=== PATIENT | male | born 1955 | race Caucasian/White ===

== ENCOUNTER 2016-07-17 09:34 | Emergency (ER) | payer OTHER ==
[2016-07-17 09:43] VITALS: BP 143/73; PULSE 82; TEMP 97.7; BMI 25.7
--- NOTE | 2016-07-17 10:06 | PDOC ---
History of Present Illness - General Chief Complaint: Injury Stated Complaint: LT HAND PAIN, SWELLING Time Seen by Provider: 07/17/16 09:46 History Source: Patient Exam Limitations: No Limitations - History of Present Illness Initial Comments: 07/17/16 09:58 On a chair that fell with him landing on an outstretched left hand. Patient states hyperextended his left fifth digit and has had pain to the PIP. Has used ice and some Motrin but has continued pain and swelling Occurred: reports: other (5 days) Severity: reports: moderate Pain Location: reports: upper extremity (left 5th digit ) Past History - Travel Traveled outside of the country in the last 30 days: No Close contact w/someone who was outside of country & ill: No - Past Medical History Allergies/Adverse Reactions: Allergies Allergy/AdvReac Type Severity Reaction Status Date / Time aspirin Allergy Verified 07/17/16 09:43 Penicillins Allergy Verified 07/17/16 09:43 Home Medications: Ambulatory Orders NK [No Known Home Medication] 07/17/16 Other medical history: PATIENT DENIES MEDICAL HISTORY - Psycho/Social/Smoking Cessation Hx Anxiety: No Suicidal Ideation: No Smoking History: Never smoked Hx Alcohol Use: Yes (E=GLASS OF WINE WITH DINNER) Drug/Substance Use Hx: No Substance Use Type: Alcohol Review of Systems - Review of Systems Able to Perform ROS?: Yes Is the patient limited Nigerian proficient: Yes Constitutional: Yes: Symptoms Reported, See HPI, Malaise HEENTM: No: Symptoms Reported Respiratory: No: Symptoms reported Musculoskeletal: Yes: Symptoms Reported, Joint Pain, Joint Swelling Integumentary: Yes: Symptoms Reported, See HPI, Bruising Neurological: Yes: See HPI. No: Symptoms reported All Other Systems: Reviewed and Negative *Physical Exam - Vital Signs Last Vital Signs Temp Pulse Resp BP Pulse Ox 97.7 F 82 18 143/73 98 07/17/16 09:40 07/17/16 09:40 07/17/16 09:40 07/17/16 09:40 07/17/16 09:40 - Physical Exam General Appearance: Yes: Nourished, Appropriately Dressed, Apparent Distress, Mild Distress HEENT: positive: MANUEL, Normal ENT Inspection, TMs Normal, Pharynx Normal Neck: positive: Supple. negative: Lymphadenopathy (R), Lymphadenopathy (L) Respiratory/Chest: positive: Lungs Clear, Normal Breath Sounds Extremity: positive: Normal Capillary Refill, Tender (flexion and extension is difficult secondary to swelling and pain to at PIP of left finger. Has reproduced tenderness at that joint. Neurovascular intact distal to injury). 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 Treated with splint, and will follow-up with Dr. Berry as needed *DC/Admit/Observation/Transfer Diagnosis at time of Disposition: Avulsion fracture of proximal phalanx of finger with routine healing - Discharge Dispostion Disposition: HOME Condition at time of disposition: Stable Admit: No - Referrals Referrals: Henrique Lara MD [Primary Care Provider] - - Patient Instructions Printed Discharge Instructions: Finger Sprain Additional Instructions: rest , Elevate, Ice on and off to finger USe splint until pain resolves- 2-3 weeks Ibuprofen 2-200mg every 6 hours for pain See Jamal for worsen pain or problems - Post Discharge Activity Work/School Note: Back to Work
== END 2016-07-17 10:31 | disposition home or self-care (01) ==
LOC: JERFT 09:34
PROC: 2W3KX1Z Immobilization of Left Finger using Splint (ICD-10-PCS; principal; 2016-07-17)
DX: S62.647A Nondisplaced fracture of proximal phalanx of left little finger, initial encounter for closed fracture (principal); W18.39XA Other fall on same level, initial encounter; Y93.9 Activity, unspecified; Y92.9 Unspecified place or not applicable
CPT/HCPCS: 73130-TC-LT; 99281-25

== ENCOUNTER 2018-03-21 11:33 | Emergency (ER) | payer OTHER ==
[2018-03-21 11:42] VITALS: BP 170/83; PULSE 90; TEMP 98.5; BMI 24.4
--- NOTE | 2018-03-21 12:06 | PDOC ---
History of Present Illness - General Chief Complaint: Allergic Reaction Stated Complaint: RT FACE RED AND SWOLLEN Time Seen by Provider: 03/21/18 11:35 History Source: Patient Exam Limitations: No Limitations - History of Present Illness Initial Comments: 03/21/18 12:00 Patient is a 63M with no significant medical history here today complaining of 1 day of facial swelling. Patient states that he was seen at the dentist on Saturday and told he might have a tooth infection at that time. Patient states that he was given amoxicillin, and when he was sent to the dentist today he was told he may have had an allergic reaction to the amoxicillin. Patient states that his right cheek is swollen, warm and tender. Denies fevers, chills, nausea , vomiting. Denies chest pain, shortness of breath. Denies rash spreading to rest of his body. Patient states that he was told as a child that he has an allergic reaction to penicillin as a child, but has never had a reaction. No pain with eye movement. No changes to vision. Past History - Past Medical History Allergies/Adverse Reactions: Allergies Allergy/AdvReac Type Severity Reaction Status Date / Time aspirin Allergy Verified 03/21/18 11:34 Penicillins Allergy Verified 03/21/18 11:34 Home Medications: Ambulatory Orders Amoxicillin - [Amoxicillin 500mg Capsule -] 500 mg PO TID 03/21/18 Finasteride [Proscar] 5 mg PO DAILY 03/21/18 Ibuprofen 800 mg PO PRN PRN 03/21/18 COPD: No - Suicide/Smoking/Psychosocial Hx Smoking History: Never smoked Have you smoked in the past 12 months: No Information on smoking cessation initiated: No Hx Alcohol Use: No Drug/Substance Use Hx: No Substance Use Type: Alcohol Review of Systems - Review of Systems Able to Perform ROS?: Yes Comments:: 03/21/18 12:03 GENERAL/CONSTITUTIONAL: No fever or chills. No weakness. HEAD, EYES, EARS, NOSE AND THROAT: No change in vision. No eye pain. No sore throat. CARDIOVASCULAR: No chest pain or shortness of breath RESPIRATORY: No cough, wheezing, or hemoptysis. GASTROINTESTINAL: No nausea, vomiting, diarrhea or constipation. GENITOURINARY: No dysuria, frequency, or change in urination. MUSCULOSKELETAL: No joint or muscle swelling or pain. No neck or back pain. SKIN: No rash NEUROLOGIC: No headache, vertigo, loss of consciousness, or change in strength/ sensation. ALLERGIC/IMMUNOLOGIC: No hives +rash *Physical Exam - Vital Signs Last Vital Signs Temp Pulse Resp BP Pulse Ox 98.5 F 90 20 170/83 98 03/21/18 11:34 03/21/18 11:34 03/21/18 11:34 03/21/18 11:34 03/21/18 11:34 - Physical Exam Comments: 03/21/18 12:05 GENERAL: Awake, alert, and fully oriented, in no acute distress HEAD: No signs of trauma, normocephalic, atraumatic EYES: PERRLA, EOMI, sclera anicteric, conjunctiva clear, no pain with eye movement FACE: 5x7cm area of erythema, warm to touch, tender MOUTH: No tender teeth, no signs of abscess, no pain with mouth opening NECK: Normal ROM, supple, no lymphadenopathy, JVD, or masses LUNGS: No distress, speaks full sentences, clear to auscultation bilaterally HEART: Regular rate and rhythm, normal S1 and S2, no murmurs, rubs or gallops, peripheral pulses normal and equal bilaterally. NEUROLOGICAL: Cranial nerves II through XII grossly intact. Normal speech, normal gait, no focal sensorimotor deficits Moderate Sedation - Procedure Monitoring Vital Signs: Procedure Monitoring Vital Signs Temperature 98.5 F 03/21/18 11:34 Pulse Rate 90 03/21/18 11:34 Respiratory Rate 20 03/21/18 11:34 Blood Pressure 170/83 03/21/18 11:34 O2 Sat by Pulse Oximetry (%) 98 03/21/18 11:34 Medical Decision Making - Medical Decision Making 03/21/18 12:06 Patient is 63M here today with cellulitis of the face. Intraoral source possible , but spread appears to be focused in skin. No signs of orbital cellulitis. No signs of allergic reaction. Patient currently on amoxicillin, will broaden coverage with bactrim. Patient to follow up with dentist and PCP. Given return precautions. *DC/Admit/Observation/Transfer Diagnosis at time of Disposition: Cellulitis - Discharge Dispostion Disposition: HOME Condition at time of disposition: Good Decision to Admit order: No - Referrals - Patient Instructions Printed Discharge Instructions: DI for Cellulitis -- Adult Additional Instructions: Please return if you have any new, worsening or concerning symptoms, especially spreading redness, increasing pain and fever. Please follow up with your dentist and primary care doctor this week. - Post Discharge Activity
[2018-03-21] MEDS ORDERED: SULFAMETHOXAZOLE/TRIMETHOPRIM 800MG/160MG D.S. TABLET PO ONE (12:10)
[2018-03-21] MEDS ORDERED: SULFAMETHOXAZOLE/TRIMETHOPRIM 800MG/160MG D.S. TABLET ONE (12:13)
--- NOTE | 2018-03-21 12:17 | PDOC ---
Attending Attestation - Resident Resident Name: ChristopherradhaRashad - ED Attending Attestation I have performed the following: I have examined & evaluated the patient, The case was reviewed & discussed with the resident, I agree w/resident's findings & plan, Exceptions are as noted - HPI HPI: 03/21/18 12:25 63-year-old male with no past medical history presents with right maxillary erythema. The patient went to a routines dentist appointment approximate 4 days ago with a dentist thought there may be a potentially early developing come infection. Patient was prescribed amoxicillin, to which he reports was able to take without difficulties. However, yesterday, the patient started noticing right maxillary facial erythema with induration but no fluctuance. No fevers or chills. Patient went to the dentist today who sent the patient to ER. Reports mildly tender but no pruritus. No pain with extra ocular movements. No ocular pain. No difficulty breathing, cough or sore throat. - Physicial Exam PE: 03/21/18 12:46 GENERAL: Awake, alert, and fully oriented, in no acute distress HEAD: No signs of trauma EYES: PERRLA, EOMI, sclera anicteric, conjunctiva clear ENT: Auricles normal inspection, hearing grossly normal, nares patent, oropharynx clear without exudates. Moist mucosa. No dental infection noted. FACE: Approximately 5x7 cm erythema with mild induration but no fluctuance R maxillary region. NECK: Normal ROM, supple EXTREMITIES: Normal range of motion, no edema. No clubbing or cyanosis. No cords, erythema, or tenderness NEUROLOGICAL: Cranial nerves II through XII grossly intact. Normal speech, normal gait SKIN: Warm, Dry, normal turgor, no rashes or lesions noted. - Medical Decision Making 03/21/18 12:52 Vital Signs Temp Pulse Resp BP Pulse Ox 98.5 F 90 20 170/83 98 03/21/18 11:34 03/21/18 11:34 03/21/18 11:34 03/21/18 11:34 03/21/18 11:34 The patient is on amoxicillin. I suspect that the patient has cellulitis. However, does not appear to go to deeper structures from history and physical exam. Will need MRSA coverage. Bactrim added. No evidence of abscess. I advised the patient to take both bactrim and amoxicillin simultaneously. Reassess in 48 to 72 hours. If symptoms worse, return to ER. Pt verbalizes understanding and agrees with plan.
== END 2018-03-21 12:20 | disposition home or self-care (01) ==
LOC: FER 11:33
DX: L03.90 Cellulitis, unspecified (principal)
CPT/HCPCS: 99281-25

== ENCOUNTER 2024-11-16 15:22 | Inpatient (IN) | payer OTHER ==
[2024-11-16 18:08] LABS: ABSOLUTE IMMATURE GRANULOCYTES 0.14 x10^3/uL (0.0-0.031); BASOPHILS # 0.03 x10^3/uL (0.01-0.08); EOSINOPHIL % 1.1 % (0.8-7.0); EOSINOPHILS # 0.16 x10^3/uL (0.04-0.54); MCHC 29.7 g/dl (32.3-36.5); MEAN CELL VOLUME 91.5 fl (79.0-92.2); MEAN PLT VOLUME 8.2 fl (9.4-12.4); MONOCYTE # 1.30 x10^3/uL (0.30-0.82); MONOCYTE % 9.2 % (5.3-12.2); RDW 15.9 % (12.2-16.4)
[2024-11-16] MEDS: morphine CARPU-JECT 4 MG/1 ML DISP.SYRIN IVPUSH ONE ×2 (18:12→22:42)
[2024-11-16 18:20] LABS: INR 1.49 (0.83-1.09); PROTHROMBIN TIME (PATIENT) 16.4 SEC (9.7-13.0)
[2024-11-16 18:22] LABS: ACTIVATED PTT 33.2 SECONDS (25.2-36.5)
[2024-11-16 19:44] LABS: GLUCOSE,RANDOM 109 mg/dL (74-106); TOT PROT 6.9 g/dl (6.4-8.2)
[2024-11-16 19:45] LABS: CO2 22 mmol/L (21-32)
[2024-11-16 19:47] LABS: ALK PHOS 209 U/L (40-150)
[2024-11-16 19:50] LABS: CREATININE 0.29 mg/dL (0.55-1.3); SGOT/AST 30 U/L (5-34); SGPT/ALT 34 U/L (0-55)
[2024-11-16] MEDS ORDERED: MORPHINE SULFATE 2 MG/ML SYRINGE ONE (22:08)
[2024-11-16] MEDS: morphine SULFATE 10 MG/5 ML UNIT-DOSE CUP GT ONE (22:43)
[2024-11-16] MEDS: LACTATED RINGERS SOLUTION 1000 ML INFUS.BAG IV ONE (23:13)
[2024-11-16] MEDS ORDERED: VANCOMYCIN 1 GM PREMIX (F) 1 GM/200 ML BAG IVPB SCH (23:45)
[2024-11-16 23:46] LABS: IRON SERUM 15 ug/dL (50-175)
[2024-11-16] MEDS ORDERED: LOPERAMIDE HCL 2 MG CAPSULE GT PRN (23:47)
[2024-11-16] MEDS ORDERED: POLYETHYLENE GLYCOL (HEALTHYLAX) 3350 17 GM PACKET GT PRN (23:47)
[2024-11-17] MEDS ORDERED: MEROPENEM 1 GM in DEXTROSE 5%-WATER 100 ML IVPB SCH (02:00)
[2024-11-17] MEDS: MIDODRINE HCL 5 MG TABLET GT SCH (03:28)
[2024-11-17] MEDS: SCOPOLAMINE HYDROBROMIDE 1 PATCH PATCH.TD72 TD SCH (03:50)
[2024-11-17] MEDS: MEROPENEM 1 GM in DEXTROSE 5%-WATER 100 ML IVPB SCH (04:10)
[2024-11-17 04:37] LABS: EPI CELLS 4 /uL (0-25.1); HYALINE CASTS 4 /uL (0-3.1); URINE APPEARANCE TURBID; URINE BACTERIA 152 /uL (0-1359); URINE BILIRUBIN NEGATIVE (NEGATIVE); URINE COLOR DK YELLOW; URINE GLUCOSE (UA) NEGATIVE (NEGATIVE); URINE KETONE NEGATIVE (NEGATIVE); URINE LEUK ESTERASE 3+ (NEGATIVE); URINE NITRITE NEGATIVE (NEGATIVE); URINE PROTEIN 2+ (NEGATIVE); URINE RBC 2970 /uL (0-23.9); URINE UROBILINOGEN 1.0 mg/dL (0.2-1.0); URINE WBC 9439 /uL (0-25.8)
[2024-11-17 05:23] VITALS: BMI 24.6
[2024-11-17] MEDS: VANCOMYCIN/WATER FOR INJ (PEG) 1,000 MG/200 ML BAG IVPB SCH (05:34)
[2024-11-17] MEDS: GABAPENTIN 100 MG CAPSULE GT SCH (06:13)
[2024-11-17] MEDS: LEVOTHYROXINE NA 25 MCG TABLET (FP) GT SCH (06:13)
[2024-11-17 08:00] LABS: ABSOLUTE IMMATURE GRANULOCYTES 0.14 x10^3/uL (0.0-0.031); BASOPHILS # 0.03 x10^3/uL (0.01-0.08); EOSINOPHIL % 1.1 % (0.8-7.0); EOSINOPHILS # 0.16 x10^3/uL (0.04-0.54); MCHC 29.6 g/dl (32.3-36.5); MEAN CELL VOLUME 92.7 fl (79.0-92.2); MEAN PLT VOLUME 8.4 fl (9.4-12.4); MONOCYTE # 1.54 x10^3/uL (0.30-0.82); MONOCYTE % 10.7 % (5.3-12.2); RDW 15.9 % (12.2-16.4)
[2024-11-17] MEDS: FERROUS SO4 300 MG/5 ML ORAL SOLN UNIT DOSE CUPS GT SCH (08:44)
[2024-11-17 08:58] LABS: GLUCOSE,RANDOM 103.0 mg/dL (74-106); TOT PROT 6.6 g/dl (6.4-8.2)
[2024-11-17 08:59] LABS: CO2 23.0 mmol/L (21-32)
[2024-11-17 09:03] LABS: SGPT/ALT 23.0 U/L (0-55)
[2024-11-17 09:04] LABS: CREATININE 0.32 mg/dL (0.55-1.3); SGOT/AST 21.0 U/L (5-34)
[2024-11-17] MEDS: ASCORBIC ACID 500 MG TABLET (FP) GT SCH (09:08)
[2024-11-17] MEDS: FINASTERIDE 5 MG TABLET (FP) GT SCH (09:08)
[2024-11-17] MEDS: VENLAFAXINE HCL 75 MG E.R. CAPSULES PO SCH (09:08)
[2024-11-17] MEDS: MULTIVITAMINS (DAILY MVI) TABLET (FP) PO SCH (09:08)
[2024-11-17 09:21] LABS: ALK PHOS 181.0 U/L (40-150)
[2024-11-17] MEDS: TERAZOSIN HCL 1 MG CAPSULE GT SCH (09:29)
[2024-11-17 09:58] LABS: URINE CRYSTALS NONE SEEN /hpf
[2024-11-17] MEDS: AMINO ACIDS/PROTEIN HYDROLYS 30 ML LIQUID.PKT GT SCH (10:35)
[2024-11-17] MEDS: VANCOMYCIN 1 GM PREMIX (F) 1 GM/200 ML BAG IVPB SCH (18:02)
[2024-11-17] MEDS ORDERED: MELATONIN 5 MG TABLETS GT SCH (22:00)
[2024-11-17] MEDS: MELATONIN 5 MG TABLETS GT SCH (22:34)
[2024-11-18] MEDS: ALBUTEROL SO4 2.5/IPRATROPIUM 0.5 INH SOL 3 ML VIAL.NEB. NEB PRN (06:40)
[2024-11-18] MEDS: MEROPENEM 1 GM in DEXTROSE 5%-WATER 100 ML IVPB SCH (10:01)
[2024-11-18 10:51] LABS: MCHC 31.1 g/dl (32.3-36.5); MEAN CELL VOLUME 89.6 fl (79.0-92.2); MEAN PLT VOLUME 8.6 fl (9.4-12.4); RDW 16.1 % (12.2-16.4)
[2024-11-18] MEDS ORDERED: MULTIVIT-MINERALS ORAL LIQUID GT SCH (12:26)
[2024-11-18] MEDS: GABAPENTIN 250 MG/5 ML ORAL SOLUTION, 470 ML BOTTLE GT SCH (14:48)
[2024-11-18] MEDS: AMINO ACIDS/PROTEIN HYDROLYS 30 ML LIQUID.PKT GT SCH (16:38)
[2024-11-18] MEDS: SODIUM HYPOCHLORITE 0.5% 473 ML- BULK BOTTLE TP SCH (17:46)
[2024-11-18] MEDS: VANCOMYCIN/WATER FOR INJ (PEG) 1,000 MG/200 ML BAG IVPB SCH (18:24)
[2024-11-19 09:34] LABS: MCHC 30.7 g/dl (32.3-36.5); MEAN CELL VOLUME 91.4 fl (79.0-92.2); MEAN PLT VOLUME 8.7 fl (9.4-12.4); RDW 15.9 % (12.2-16.4)
[2024-11-19] MEDS: MULTIVIT-MINERALS ORAL LIQUID GT SCH (09:45)
[2024-11-19] MEDS: ASCORBIC ACID 500 MG/5 ML UNIT DOSE CUP GT SCH (09:45)
[2024-11-19] MEDS: VENLAFAXINE HCL 75 MG TABLET PEG SCH (14:05)
[2024-11-20 08:24] LABS: ABSOLUTE IMMATURE GRANULOCYTES 0.11 x10^3/uL (0.0-0.031); BASOPHILS # 0.04 x10^3/uL (0.01-0.08); EOSINOPHIL % 5.0 % (0.8-7.0); EOSINOPHILS # 0.49 x10^3/uL (0.04-0.54); MCHC 29.9 g/dl (32.3-36.5); MEAN CELL VOLUME 92.4 fl (79.0-92.2); MEAN PLT VOLUME 8.8 fl (9.4-12.4); MONOCYTE # 1.23 x10^3/uL (0.30-0.82); MONOCYTE % 12.5 % (5.3-12.2); RDW 15.8 % (12.2-16.4)
[2024-11-21] MEDS: ACETAMINOPHEN 325 MG TABLET (FP) PO PRN (00:02)
[2024-11-21] MEDS: VENLAFAXINE HCL 75 MG E.R. CAPSULES PO SCH (22:08)
[2024-11-22] MEDS: DEXTROSE 5%-0.45% SALINE 1,000 ML IV SCH (00:14)
[2024-11-22] MEDS: ACETAMINOPHEN 1000 MG/100 ML BAG IVPB ONE (00:14)
[2024-11-22] MEDS: morphine CARPU-JECT 2 MG/1 ML DISP.SYRIN IVPUSH ONE (08:13)
[2024-11-23 09:20] LABS: ABSOLUTE IMMATURE GRANULOCYTES 0.14 x10^3/uL (0.0-0.031); BASOPHILS # 0.04 x10^3/uL (0.01-0.08); EOSINOPHIL % 1.5 % (0.8-7.0); EOSINOPHILS # 0.23 x10^3/uL (0.04-0.54); MCHC 30.4 g/dl (32.3-36.5); MEAN CELL VOLUME 90.5 fl (79.0-92.2); MEAN PLT VOLUME 9.0 fl (9.4-12.4); MONOCYTE # 2.12 x10^3/uL (0.30-0.82); MONOCYTE % 13.4 % (5.3-12.2); RDW 15.0 % (12.2-16.4)
[2024-11-23 10:19] LABS: TOT PROT 6.2 g/dl (6.4-8.2)
[2024-11-23 10:20] LABS: CO2 22.0 mmol/L (21-32)
[2024-11-23 10:24] LABS: CREATININE 0.25 mg/dL (0.55-1.3); SGOT/AST 27.0 U/L (5-34)
[2024-11-23 10:57] LABS: ALK PHOS 107.0 U/L (40-150); GLUCOSE,RANDOM 133.0 mg/dL (74-106)
[2024-11-23 12:12] LABS: SGPT/ALT 18.0 U/L (0-55)
[2024-11-23] MEDS: ALBUTEROL SO4 2.5/IPRATROPIUM 0.5 INH SOL 3 ML VIAL.NEB. NEB PRN (17:36)
[2024-11-24 11:15] LABS: ABSOLUTE IMMATURE GRANULOCYTES 0.08 x10^3/uL (0.0-0.031); BASOPHILS # 0.03 x10^3/uL (0.01-0.08); EOSINOPHIL % 1.9 % (0.8-7.0); EOSINOPHILS # 0.23 x10^3/uL (0.04-0.54); MCHC 30.0 g/dl (32.3-36.5); MEAN CELL VOLUME 91.1 fl (79.0-92.2); MEAN PLT VOLUME 9.1 fl (9.4-12.4); MONOCYTE # 1.62 x10^3/uL (0.30-0.82); MONOCYTE % 13.7 % (5.3-12.2); RDW 14.9 % (12.2-16.4)
[2024-11-24] MEDS: ZINC OXIDE 20% TOPICAL OINTMENT 30 GM TUBE TP SCH (13:22)
[2024-11-26 07:39] LABS: MCHC 29.5 g/dl (32.3-36.5); MEAN CELL VOLUME 90.9 fl (79.0-92.2); MEAN PLT VOLUME 9.1 fl (9.4-12.4); RDW 15.0 % (12.2-16.4)
[2024-11-26 07:40] LABS: GLUCOSE,RANDOM 125.0 mg/dL (74-106)
[2024-11-26 07:41] LABS: CO2 28.0 mmol/L (21-32)
[2024-11-26 07:45] LABS: CREATININE 0.25 mg/dL (0.55-1.3)
[2024-11-26] MEDS ORDERED: MEROPENEM 1 GM VIAL (RESTRICTED TO ID) IVPB ONE (17:12)
[2024-11-27 11:36] VITALS: TEMP 97.9
[2024-11-27 14:45] VITALS: BP 137/59; PULSE 92; RESP 20
== END 2024-11-27 17:03 | DRG 871 ==
LOC: JER 15:22 → JERBED 19:59 → OBSVTOIN 19:59 → J7W 11-17 01:38
PROVIDERS: ADMIT Internal Medicine; ATTEND Internal Medicine
PROC: 30233N1 Transfusion of Nonautologous Red Blood Cells into Peripheral Vein, Percutaneous Approach (ICD-10-PCS; 2024-11-17)
PROC: 0DH63UZ Insertion of Feeding Device into Stomach, Percutaneous Approach (ICD-10-PCS; principal; 2024-11-21)
PROC: 3E0G76Z Introduction of Nutritional Substance into Upper GI, Via Natural or Artificial Opening (ICD-10-PCS; 2024-11-21)
DX: A41.9 Sepsis, unspecified organism (principal); G82.50 Quadriplegia, unspecified; L89.154 Pressure ulcer of sacral region, stage 4; L89.313 Pressure ulcer of right buttock, stage 3; K94.23 Gastrostomy malfunction; I10 Essential (primary) hypertension; J44.9 Chronic obstructive pulmonary disease, unspecified; L89.322 Pressure ulcer of left buttock, stage 2; D64.9 Anemia, unspecified; E03.9 Hypothyroidism, unspecified; N40.0 Benign prostatic hyperplasia without lower urinary tract symptoms; Y83.8 Other surgical procedures as the cause of abnormal reaction of the patient, or of later complication, without mention of misadventure at the time of the procedure
CPT/HCPCS: 36415; 36430; 71045-TC-FY; 71250-TC; 74018-TC-FY; 74019-TC-FY; 80048; 80053; 81003; 82272; 82728; 83540; 83550; 83735; 84100; 85025; 85027; 85610; 85730; 86850; 86900; 86901; 86922; 87040; 87070; 87077; 87086; 87205; 87635; 87637-QW; 87899; 88300-TC; 93005; 93010; 94640; 99285-25; E0186; G0480; P9058